=== PATIENT | female | born 1960 | race Caucasian/White ===

== ENCOUNTER → 2016-06-05 | Outpatient (CLI) | payer MEDICARE, MEDICAID ==
[~2016-06-05] MED LIST: ASPIRIN325 MG ORAL; BP medication PO; CATAPRES0.1 MG ORAL; MULTIVITAMINS1 EA14 PO; OMEGA 3 1,0001 EACH PO; SYNTHROID75 MCG ORAL; cholesterol med
[2016-06-05 14:34] VITALS: BP 91/62
--- NOTE | 2016-06-05 15:28 | GI Progress Note ---
Assessment/Plan Problems: (1) Gastritis ICD Codes: K29.70 - Gastritis, unspecified, without bleeding SNOMED: 6276578 (2) Constipation ICD Codes: K59.00 - Constipation, unspecified SNOMED: 81329291 (3) Hemorrhoids ICD Codes: K64.9 - Unspecified hemorrhoids SNOMED: 33488962 Status: stable Status Narrative Seen with Dr. Bernard. Assessment/Plan ordered Breath Test @ [facility] cont plum juice for constipation nystatin rx sw/sw RTC after BT procedure. Subjective Subjective Belching constipation, uses plum juice abdominal discomfort has not taken breath test which was previous ordered last year s/p EGD/colon, wants another one done denies weight loss Objective Last 24 Hour Vital Signs Date Time Temp Pulse Resp B/P Pulse Ox O2 Delivery O2 Flow Rate FiO2 06/05/16 14:34 97.8 63 16 91/62 General Appearance: no apparent distress, alert Cardiovascular: normal rate Respiratory/Chest: no respiratory distress Abdominal Exam: normal bowel sounds, soft, tender - mild Extremities: normal range of motion Objective DATE OF PROCEDURE: 05/22/2015 PROCEDURE: Upper endoscopy with biopsy and hemostasis and colonoscopy. INDICATION: Screening colonoscopy evaluation and chronic acid reflux disease. SUMMARY OF FINDINGS: 1. Gastritis. 2. Duodenal arteriovenous malformation, status post argon plasma coagulation. 3. Diverticulosis. 4. Internal hemorrhoids. Maria R Escalante N.P. Jun 05, 2016 15:28
== END | disposition home or self-care (01) ==
LOC: PAN 14:11
DX: K29.70 Gastritis, unspecified, without bleeding (principal); K59.00 Constipation, unspecified; K64.9 Unspecified hemorrhoids
CPT/HCPCS: 99211

== ENCOUNTER 2016-07-04 14:18 | Outpatient (CLI) | payer MEDICARE, MEDICAID ==
--- NOTE | 2016-07-04 15:32 | GI Progress Note ---
Assessment/Plan Problems: (1) Hemorrhoids ICD Codes: K64.9 - Unspecified hemorrhoids SNOMED: 00307160 (2) Gastritis ICD Codes: K29.70 - Gastritis, unspecified, without bleeding SNOMED: 3798006 (3) Constipation ICD Codes: K59.00 - Constipation, unspecified SNOMED: 32159088 Status: unchanged Status Narrative Discussed with Dr. Bernard. Assessment/Plan Breath Test unremarkable trial rx Trulance ordered CT of chest/AP cont plum juice for constipation prn RTC after imaging study. Subjective Subjective Belching constipation, uses plum juice with min relief abdominal discomfort s/p EGD/colon, wants another one done weight loss 4 lbs in 2 weeks Objective T 98.3 BP 107/67 P 76 98 RA General Appearance: no apparent distress, alert Cardiovascular: normal rate Respiratory/Chest: normal breath sounds, no respiratory distress Abdominal Exam: normal bowel sounds, non tender, soft Extremities: normal range of motion Maria R Escalante N.P. July 04, 2016 15:32
== END 2016-07-04 14:55 | disposition home or self-care (01) ==
LOC: PAN 14:18
DX: K64.9 Unspecified hemorrhoids (principal); K29.70 Gastritis, unspecified, without bleeding; K59.00 Constipation, unspecified
CPT/HCPCS: 99211

== ENCOUNTER 2017-05-22 13:53 | Outpatient (CLI) | payer MEDICARE, MEDICAID ==
--- NOTE | 2017-05-22 14:54 | General Progress Note ---
Assessment/Plan Problem List: (1) Hemorrhoids ICD Codes: K64.9 - Unspecified hemorrhoids SNOMED: 72261870 (2) Gastritis ICD Codes: K29.70 - Gastritis, unspecified, without bleeding SNOMED: 9885078 (3) Constipation ICD Codes: K59.00 - Constipation, unspecified SNOMED: 88873443 Assessment/Plan orte[place] CT labs for today\ trial of linzess 72 and marinol 5 Subjective ROS Limited/Unobtainable: Yes Allergies: Coded Allergies: OPIOIDS - MORPHINE ANALOGUES (Verified Allergy, Severe, Anaphylaxis, ) OPIOIDS-MEPERIDINE & RELATED (Verified Allergy, Severe, Anaphylaxis, ) OPIOIDS-METHADONE & RELATED (Verified Allergy, Severe, Anaphylaxis, ) Subjective c/o wt loss wants marinol c/o abd pain constipation blooding Objective General Appearance: alert EENT: normal ENT inspection Neck: supple Cardiovascular: normal rate Respiratory/Chest: lungs clear Abdomen: normal bowel sounds, non tender, soft Extremities: non-tender LUIS ANGEL LOVETT May 22, 2017 14:54
[2017-05-22 15:09] VITALS: BP 105/67
[2017-05-22] MEDS ORDERED: ASPIRIN EC81 MG ORAL (15:09)
[2017-05-22 15:55] LABS: BASOPHILS % (AUTO) 0.6 % (0.0-2.0); EOSINOPHILS % (AUTO) 0.5 % (0.0-3.0); HEMATOCRIT 38.6 % (37.0-47.0); LYMPHOCYTES % (AUTO) 30.2 % (20.0-45.0); MEAN CORPUSCULAR VOLUME 93 FL (80-99); MONOCYTES % (AUTO) 6.8 % (1.0-10.0); NEUTROPHILS % (AUTO) 61.9 % (45.0-75.0); PLATELET COUNT 218 K/UL (150-450); RED BLOOD COUNT 4.15 M/UL (4.20-5.40); RED CELL DISTRIBUTION WIDTH 12.2 % (11.6-14.8); WHITE BLOOD COUNT 7.9 K/UL (4.8-10.8)
[2017-05-22 16:26] LABS: ALANINE AMINOTRANSFERASE 21 U/L (12-78); ALBUMIN/GLOBULIN RATIO 1.2 (1.0-2.7); ALKALINE PHOSPHATASE 67 U/L (46-116); AMYLASE 64 U/L (25-115); ANION GAP 7 mmol/L (5-15); ASPARTATE AMINO TRANSFERASE 17 U/L (15-37); BILIRUBIN,TOTAL 0.2 MG/DL (0.2-1.0); BLOOD UREA NITROGEN 19 mg/dL (7-18); CARBON DIOXIDE 28 MMOL/L (21-32); CHLORIDE 101 MMOL/L (98-107); CREATININE 0.9 MG/DL (0.55-1.30); POTASSIUM 4.1 MMOL/L (3.5-5.1); SODIUM 136 MMOL/L (136-145)
== END 2017-05-22 14:25 | disposition home or self-care (01) ==
LOC: PAN 13:53
DX: K64.9 Unspecified hemorrhoids (principal); K29.70 Gastritis, unspecified, without bleeding; K59.00 Constipation, unspecified
CPT/HCPCS: 36415; 80053; 82150; 82378; 83690; 84439; 84443; 85025; G0463; 99212

== ENCOUNTER → 2017-07-01 | Outpatient (CLI) | payer MEDICARE, MEDICAID ==
[~2017-07-01] MED LIST changes: +ASPIRIN EC81 MG ORAL; +LINZESS145 MCG PO; +MARINOL5 MG ORAL; +SOMA350 MG PO; +VITAMIN D400 INTLU ORAL
[2017-07-01 14:07] VITALS: BP 105/65
--- NOTE | 2017-07-02 09:51 | GI Progress Note ---
Assessment/Plan Problems: (1) Hemorrhoids ICD Codes: K64.9 - Unspecified hemorrhoids SNOMED: 95875570 (2) Gastritis ICD Codes: K29.70 - Gastritis, unspecified, without bleeding SNOMED: 8019985 (3) Constipation ICD Codes: K59.00 - Constipation, unspecified SNOMED: 71397675 Status: stable Status Narrative Seen with Dr. Bernard. Assessment/Plan obtain RUQ abdominal US cont Linzess RTC after imaging study The patient was seen and examined at bedside and all new and available data was reviewed in the patients chart. I agree with the above findings, impression and plan. (Patient seen earlier today. Signature stamp does not reflect patient encounter time.). - Abelardo Bernard MD Subjective Subjective abdominal pain decreased constipation, takes Linzes 72mcg occasionally abdominal bloating had previous left kidney pain and CT done at [facility] Objective Last 24 Hour Vital Signs Date Time Temp Pulse Resp B/P (MAP) Pulse Ox O2 Delivery O2 Flow Rate FiO2 07/01/17 14:07 98.2 75 16 105/65 97 98.2 General Appearance: WD/WN, no apparent distress, alert Cardiovascular: normal rate Respiratory/Chest: normal breath sounds, no respiratory distress Abdominal Exam: normal bowel sounds, non tender, soft Extremities: normal range of motion, non-tender Shailesh Escalante NP July 02, 2017 09:51
== END | disposition home or self-care (01) ==
LOC: PAN 06-23 15:25
DX: K64.9 Unspecified hemorrhoids (principal); K29.70 Gastritis, unspecified, without bleeding; K59.00 Constipation, unspecified
CPT/HCPCS: 99212

== ENCOUNTER → 2017-07-07 | Outpatient (CLI) | payer MEDICARE, MEDICAID ==
--- NOTE | 2017-07-07 14:24 | Diagnostic Imaging Report ---
Indication:Abdominal pain Technique: Grayscale and duplex Doppler imaging of the abdomen performed. Comparison: None Findings: The liver, demonstrated part of the pancreas, gallbladder, aorta and IVC, spleen appear unremarkable. Echogenic foci noted within the kidneys bilaterally consistent with nonobstructive stones. This may be confirmed on noncontrast CT. There is no biliary ductal dilatation identified. Doppler evaluation of the main portal vein shows patency. There is no ascites. No hydronephrosis seen. Impression: Suspected nonobstructive renal stones
== END | disposition home or self-care (01) ==
LOC: ULS 11:21
DX: R10.9 Unspecified abdominal pain (principal)
CPT/HCPCS: 76700

== ENCOUNTER 2017-08-04 13:05 | Outpatient (CLI) | payer MEDICARE, MEDICAID ==
--- NOTE | 2017-08-04 13:56 | GI Progress Note ---
Assessment/Plan Problems: (1) Abdominal pain ICD Codes: R10.9 - Unspecified abdominal pain SNOMED: 61654528 (2) Gastritis ICD Codes: K29.70 - Gastritis, unspecified, without bleeding SNOMED: 4948193 (3) Constipation ICD Codes: K59.00 - Constipation, unspecified SNOMED: 02386661 (4) Hemorrhoids ICD Codes: K64.9 - Unspecified hemorrhoids SNOMED: 02754374 Status: stable Status Narrative Discussed with Dr. Bernard. Assessment/Plan MRI spine ordered. Rx Motrin, Flexeril RTC after imaging studies. The patient was seen and examined at bedside and all new and available data was reviewed in the patients chart. I agree with the above findings, impression and plan. (Patient seen earlier today. Signature stamp does not reflect patient encounter time.). - Abelardo Bernard MD Subjective Subjective denies any left flank pain at this time has RU back pain, that shoots up and down her body Objective T 97.8 BP 123/85 P 81 96 RA General Appearance: WD/WN, no apparent distress, alert Cardiovascular: normal rate Respiratory/Chest: normal breath sounds, no respiratory distress Abdominal Exam: normal bowel sounds, non tender, soft Extremities: normal range of motion, non-tender Shailesh Escalante NP Aug 04, 2017 13:56
== END 2017-08-04 13:38 | disposition home or self-care (01) ==
LOC: PAN 13:05
DX: R10.9 Unspecified abdominal pain (principal); K29.70 Gastritis, unspecified, without bleeding; K59.00 Constipation, unspecified; K64.9 Unspecified hemorrhoids

== ENCOUNTER 2017-08-05 10:07 | Outpatient (CLI) | payer MEDICARE, MEDICAID ==
--- NOTE | 2017-08-05 14:35 | Diagnostic Imaging Report ---
Indication: Neck pain x3 days Technique: Sagittal T1 FLAIR PROPELLER, sagittal T2 PROPELLOR, sagittal STIR, axial T2 PROPELLER, axial 3D COSMIC ASPIR images were obtained through the cervical spine Comparison: none Findings: Bony alignment is normal. Vertebral marrow signal is normal. Intrinsic cord signal is normal. Vertebral body heights are preserved. No definite acute fractures. At C5-6, there is minimal degenerative disc narrowing posteriorly. There is posterior disc bulge/osteophyte complex as well as ligamentum flavum hypertrophy results results moderate narrowing of the spinal canal, minimum AP dimension 8 mm. There is moderate to severe right, severe left neural foraminal stenosis, predominantly due to uncinate hypertrophy. At C6-7, there is mild broad-based posterior disc protrusion with suggestion of a high intensity zone. This results in borderline narrowing of the spinal canal, without significant impingement upon the cord. There is mild bilateral neural foraminal narrowing. At the remaining disc levels, no significant disc bulge or protrusion, spinal stenosis, or neural foraminal stenosis. The included extraspinal soft tissues are remarkable for mild mucosal thickening of the left maxillary sinus. Impression: No acute process Degenerative changes, as detailed above, most significant at C5-6, with moderate spinal stenosis and bilateral neural foraminal stenoses as described
--- NOTE | 2017-08-05 14:54 | Diagnostic Imaging Report ---
Indication: . Back pain x5 days, pain from mid back at the shoulder Technique: Sagittal T1 fast spin echo, sagittal T2 fast echo, sagittal STIR, axial T1 and T2 fast spin echo images were obtained through the thoracic spine Comparison: none Findings: Bony alignment is normal. Vertebral body heights are preserved. The disc spaces are preserved. The vertebral marrow signal is preserved. No significant disc bulge or protrusion, spinal stenosis, or neural foraminal stenosis. 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 Impression: Essentially unremarkable exam. No acute abnormality or evidence of significant neural impingement
== END 2017-08-05 12:07 | disposition home or self-care (01) ==
LOC: MRI 10:07
DX: M54.9 Dorsalgia, unspecified (principal); M54.2 Cervicalgia; M48.02 Spinal stenosis, cervical region
CPT/HCPCS: 72141; 72146

== ENCOUNTER 2018-08-05 13:53 | Outpatient (CLI) | payer MEDICARE, MEDICAID ==
--- NOTE | 2018-08-05 14:48 | General Progress Note ---
Assessment/Plan Problem List: (1) SIBO (2) Hemorrhoids ICD Codes: K64.9 - Unspecified hemorrhoids SNOMED: 91833686 (3) Abdominal pain ICD Codes: R10.9 - Unspecified abdominal pain SNOMED: 88107716 (4) Gastritis ICD Codes: K29.70 - Gastritis, unspecified, without bleeding SNOMED: 9163096 (5) Constipation ICD Codes: K59.00 - Constipation, unspecified SNOMED: 57975071 Assessment/Plan: xifaxan trial RTC after above Subjective ROS Limited/Unobtainable: Yes Allergies: Coded Allergies: OPIOIDS - MORPHINE ANALOGUES (Verified Allergy, Severe, Anaphylaxis, ) IODINE (Verified Allergy, Unknown, 05/27/17) Objective General Appearance: alert EENT: PERRL/EOMI Neck: supple Cardiovascular: normal rate Respiratory/Chest: lungs clear Abdomen: normal bowel sounds, non tender, soft Extremities: non-tender Abelardo Bernard MD Aug 05, 2018 14:48
[2018-08-05 15:52] VITALS: BP 105/62
== END 2018-08-05 15:53 | disposition home or self-care (01) ==
LOC: PAN 13:53
DX: K64.9 Unspecified hemorrhoids (principal); R10.9 Unspecified abdominal pain; K29.70 Gastritis, unspecified, without bleeding; K59.00 Constipation, unspecified; Z88.6 Allergy status to analgesic agent; Z91.041 Radiographic dye allergy status; K56.609 Unspecified intestinal obstruction, unspecified as to partial versus complete obstruction
CPT/HCPCS: 99212

== ENCOUNTER 2018-08-06 08:32 | Outpatient (CLI) | payer MEDICARE, OTHER ==
--- NOTE | 2018-08-06 11:42 | Diagnostic Imaging Report ---
Indication: Right upper quadrant pain, right flank pain, right inguinal pain and swelling Technique: Dumont-scale and duplex images of the upper abdomen were obtained. Doppler interrogation of the pancreatic and hepatic vessels Comparison: none Findings: Gallbladder is unremarkable, without stones, wall thickening, nor pericholecystic fluid. Sonographic Cazares's sign is negative. Common bile duct measures 6 mm in diameter. No intrahepatic biliary ductal dilatation. Liver demonstrates normal echogenicity, no focal abnormality. Portal vein and hepatic veins are patent. Pancreas is unremarkable. Spleen is unremarkable. Left kidney measures 10.5 cm in length. Right kidney measures 10.1 cm length. Both kidneys demonstrate normal echogenicity. There is no hydronephrosis. No focal abnormality . Non-aneurysmal abdominal aorta . Scanning through the bilateral inguinal regions demonstrate somewhat prominent but not frankly enlarged lymph nodes, measuring up to 1.6 cm long axis dimension on the right, 1.8 cm long axis dimension on the left, all demonstrating preserved lien architecture. No mass or hernia demonstrated Impression: Negative for gallstones, dilated ducts, or other acute or significant abnormality Mildly prominent but otherwise normal-appearing bilateral inguinal nodes. No definite lymphadenopathy or other findings to account for stated clinical history of bilateral inguinal swelling
== END 2018-08-06 10:32 | disposition home or self-care (01) ==
LOC: ULS 08:32
DX: R10.11 Right upper quadrant pain (principal)
CPT/HCPCS: 76700

== ENCOUNTER 2019-04-14 12:48 | Outpatient (CLI) | payer MEDICARE, OTHER ==
[2019-04-14] MEDS ORDERED: HTN MED (13:08)
[2019-04-14] MEDS ORDERED: [UNRECOGNIZED DRUG - REMARK] (13:08)
[2019-04-14 13:09] VITALS: BP 113/76
--- NOTE | 2019-04-14 13:26 | General Progress Note ---
Assessment/Plan Assessment/Plan: Assessment/Plan Problem List: (1) SIBO (2) Hemorrhoids ICD Codes: K64.9 - Unspecified hemorrhoids SNOMED: 04764621 (3) Abdominal pain ICD Codes: R10.9 - Unspecified abdominal pain SNOMED: 08094265 (4) Gastritis Assessment/Plan: xifaxan trial marinol avoid dairy product last EGD and colon in 2016 plan repeat next year RTC after above Subjective ROS Limited/Unobtainable: Yes Allergies: Coded Allergies: OPIOIDS - MORPHINE ANALOGUES (Verified Allergy, Severe, Anaphylaxis, ) IODINE (Verified Allergy, Unknown, 05/27/17) Objective Last 24 Hour Vital Signs Date Time Temp Pulse Resp B/P (MAP) Pulse Ox O2 Delivery O2 Flow Rate FiO2 04/14/19 13:09 98.6 85 16 113/76 (88) 95 General Appearance: alert EENT: normal ENT inspection Neck: supple Cardiovascular: normal rate Respiratory/Chest: decreased breath sounds Abdomen: normal bowel sounds, non tender, soft Extremities: non-tender Abelardo Bernard MD Apr 14, 2019 13:26
== END 2019-04-14 17:09 | disposition home or self-care (01) ==
LOC: PAN 12:48
DX: K64.9 Unspecified hemorrhoids (principal); R10.9 Unspecified abdominal pain; K29.70 Gastritis, unspecified, without bleeding; Z91.041 Radiographic dye allergy status; Z88.6 Allergy status to analgesic agent; K56.609 Unspecified intestinal obstruction, unspecified as to partial versus complete obstruction
CPT/HCPCS: 99212